=== PATIENT | female | born 1970 | race Caucasian/White ===

== ENCOUNTER 2021-04-01 21:00 | Emergency (ER) | payer OTHER ==
[2021-04-02] MEDS ORDERED: PERCOCET 5-3251 EACH PO (03:33)
[2021-04-02] MEDS ORDERED: IBUPROFEN800 MG PO (03:33)
[2021-04-02] MEDS ORDERED: AUGMENTIN 875-1 EACH PO (03:33)
== END 2021-04-02 03:55 | disposition home or self-care (01) ==
LOC: FER 21:00
DX: S61.452A Open bite of left hand, initial encounter (principal); S61.552A Open bite of left wrist, initial encounter; S51.852A Open bite of left forearm, initial encounter; S80.812A Abrasion, left lower leg, initial encounter; I10 Essential (primary) hypertension; E11.9 Type 2 diabetes mellitus without complications; F17.290 Nicotine dependence, other tobacco product, uncomplicated; Z23 Encounter for immunization; Z79.84 Long term (current) use of oral hypoglycemic drugs; Z79.899 Other long term (current) drug therapy; W54.0XXA Bitten by dog, initial encounter; Y92.009 Unspecified place in unspecified non-institutional (private) residence as the place of occurrence of the external cause
CPT/HCPCS: 73100; 73120; 90471; 90715; 96372; J1170; J1885